=== PATIENT | male | born 1985 | race Two or more races ===

== ENCOUNTER → 2016-12-14 | Outpatient (CLI) | payer OTHER ==
--- NOTE | 2016-12-14 08:49 | KCIC ---
Examination: Ultrasound abdomen complete HISTORY: History of abdominal pain COMPARISON: None available FINDINGS: The pancreas is poorly visualized due to bowel gas. The visualized IVC, aorta are patent. The right lobe of the liver measures 17.5 cm. There is mild increased echogenicity noted throughout the liver. No evidence of gallstones. The gallbladder wall thickness measures 1.9 mm. The common bile duct measures 3.4 mm in transverse dimension. The right kidney measures 11.5 x 4.5 x 6.6 cm. The left kidney measures 12.4 x 5.8 x 5.3 cm. The spleen measures 10.9 cm in length. In the region of the left lower quadrant no definite evidence of mass or lesion visualized on this exam. IMPRESSION: 1. Hepatic steatosis with hepatomegaly. 2. No evidence of gallstones. Electronically signed by: José Michel MD (12/14/2016 8:46 AM) [id number]
== END | disposition home or self-care (01) ==
LOC: KCIC US 07:41
PROVIDERS: ATTEND Physician Assistant Surgical
DX: K76.0 Fatty (change of) liver, not elsewhere classified (principal)
CPT/HCPCS: 76700